=== PATIENT | female | born 1935 | race Caucasian/White ===

== ENCOUNTER → 2017-03-10 | Outpatient (CLI) | payer OTHER ==
[~2017-03-10] MED LIST: BYSTOLIC5 MG PO; CALCIUM 500 + D1 TAB PO; FEMARA2.5 MG PO; GARLIC500 M1 PO; GLUCOSAMINE CHRON; KEFLEX500 MG PO; KLONOPIN0.5 MG PO; LORTAB 7.5-5001 TAB PO; LORTAB 7.51 TAB 7.5/ PO; MECLIZINE HCL12.5 MG PO; MOTION RELIEF25 MG PO; MULTI-VITAMIN1 TAB PO; NEXIUM PO; NOLVADEX PO; OMEGA 3; PAIN RELIEF325 MG PO; PHENERGAN25 MG PO; QUINAPRIL HCL20 MG PO; QUINAPRIL-HCTZ1 TA2 PO; QUINARETIC; VIT E PO; [UNRECOGNIZED DRUG - OTHER]
--- NOTE | ~2017-03-10 | MY28 ---
[facility] A Service of [facility] & [facility] RADIOLOGY TEXT RESULTS PATIENT: CLARIBEL BARKER LOCATION: [facility] : 39 UNIT #: [id number] AGE: [address]: George Bardales MD SEX: F ORDER DR: [id number] [facility] [address] [place], [place] [address] [id number] O MR#: [id number] Acc #: [id number] NAME: CLARIBEL BARKER : 1935 SEX: F STUDY DATE/TIME: 03/10/2017 10:46 UNIT: [facility] ROOM: STUDY DESCRIPTION: MY BARBER SCREEN W/ CAD UNI RT Attending Physician: George Bardales M.D. Ordering Physician: George Bardales M.D. Primary Care Physician: Shamar Ojeda M.D. MEDICAL IMAGING REPORT This report is preliminary unless electronic signature is present EXAM Unilateral right digital screening mammogram, 03/10/2017 HISTORY 81-year-old woman status post left mastectomy age 75. Annual screening. COMPARISON Mammograms date to 10/20/2007 with most recent 03/07/2016. FINDINGS Digital imaging of the right breast was completed utilizing screening protocol. Review includes FDA-approved CAD device. Breast parenchyma is heterogeneously dense with a nodular parenchymal pattern remaining in the retroareolar location and upper outer quadrant. Duct ectasia is stable. Coarse calcifications are stable. I see no suspicious mass. There are no interval occurring microcalcifications and no architectural deformity. IMPRESSION Stable benign unilateral right mammogram. Status post left mastectomy. Annual screening recommended. Patients over the age of 40 are entered into a reminder system with target due date for the next mammogram. A result letter will also be sent to the patient. BIRADS: 2 Benign Finding Dictated by... Carlin Haq M.D. THIS IS AN ELECTRONICALLY VERIFIED REPORT Carlin Haq M.D. at 03/11/2017 8:05 AM [email or web address] [facility] A Service of [facility] & [facility] RADIOLOGY TEXT RESULTS PATIENT: [facility]ARK[id number] [birth year] UNIT #: [id number] AGE: [address]: George Bardales MD SEX: F ORDER DR: TD: 03/10/2017 20:14 JOB #: [id number] MEDICAL IMAGING REPORT Page 1 of 1 COPY
== END | disposition home or self-care (01) ==
LOC: CWCC 10:25
DX: Z12.31 Encounter for screening mammogram for malignant neoplasm of breast (principal); Z85.3 Personal history of malignant neoplasm of breast; Z90.12 Acquired absence of left breast and nipple
CPT/HCPCS: G0202